=== PATIENT | female | born 1950 | race Caucasian/White ===

== ENCOUNTER 2017-09-26 10:30 | Inpatient (IN) ==
[2017-09-26] MEDS ORDERED: Aspirin 81 MG TAB.CHEW PO ONE (10:34)
[2017-09-26] MEDS ORDERED: *HR* Ticagrelor 90 MG TABLET PO ONE (10:44)
[2017-09-26] MEDS ORDERED: Heparin 25,000 UNIT/500 ML D5W 25,000 UNIT/500 ML BAG IVC SCH (10:45)
[2017-09-26] MEDS ORDERED: *HR* Heparin 5,000 UNIT/ML VIAL IVP PRN ×2 (10:45)
[2017-09-26] MEDS ORDERED: *HR* Heparin 5,000 UNIT/ML VIAL IVP ONE (10:45)
[2017-09-26] MEDS ORDERED: *HR* Heparin 5,000 UNIT/ML VIAL ONE (10:48)
[2017-09-26] MEDS ORDERED: *HR* Ticagrelor 90 MG TABLET ONE (10:48)
--- NOTE | 2017-09-26 10:49 | Emergency Department Note ---
Disposition Clinical Impression: STEMI (ST elevation myocardial infarction) Qualifiers: Involved coronary artery: unspecified coronary artery Qualified Code(s): I21.3 - ST elevation (STEMI) myocardial infarction of unspecified site Disposition: Admitted As Inpatient Condition: Good Chest Pain HPI - General Chief Complaint: ED Chest Pain Stated Complaint: chest pain/dizzy/diaphoretic Time Seen by Provider: 09/26/17 10:34 Source: patient Limitations: no limitations Vital Signs Reviewed: Yes Nursing Notes Reviewed: Yes - History of Present Illness HPI Narrative: Patient presents to emergency department after one hour of chest pressure. Patient states the concrete block has been sitting on her chest. Has associated nausea and diaphoresis as well as shortness of breath. No episodes of vomiting. No radiation of pain. Patient is a diabetic and has hypercholesterolemia. Patient does not take daily aspirin. The patient did not have aspirin prior to arrival. Patient has not received nitroglycerin. Bedside EKG shows that the patient has an inferior STEMI with elevations in 23 and aVF with flattening and inversion of her T waves in 1 and aVL. The patient does have a family history of coronary artery disease. Patient's pain has gone from a 10 to 8 with rest. Severity scale (1-10): 9 - Related Data Home Medications Medication Instructions Recorded Confirmed ALPRAZolam [Xanax 0.5 MG Tablet] 0.5 mg PO BID PRN 05/21/15 05/21/15 Cholecalciferol (Vitamin D3) 5,000 unit PO DAILY 05/21/15 05/21/15 [Vitamin D] Escitalopram [Lexapro] 10 mg PO DAILY 05/21/15 05/21/15 Esomeprazole Magnesium [Nexium] 20 mg PO HS 05/21/15 05/21/15 Fexofenadine HCl 180 mg PO DAILY 05/21/15 05/21/15 Fluticasone Propionate Nasal 1 spr NS BID 05/21/15 05/21/15 [Flonase] Gabapentin [Neurontin] 300 mg PO HS 05/21/15 05/21/15 HYDROcodone/Acet 5/325 mg [[place] 1 tab PO DAILY 05/21/15 05/21/15 5-325 mg] Ibuprofen [Motrin] 200 mg PO Q6HR 05/21/15 05/21/15 Lactobacillus Acidophilus 1 each PO BID 05/21/15 05/21/15 [Acidophilus] Montelukast [Singulair] 10 mg PO HS 05/21/15 05/21/15 Pravastatin Sodium [Pravachol] 20 mg PO HS 05/21/15 05/21/15 Previous Rx's Medication Instructions Recorded Oxycodone HCl/Acetaminophen 1 tab PO Q6H PRN #39 tab 05/21/15 [Percocet 10-325 mg Tablet] Allergies Allergy/AdvReac Type Severity Reaction Status Date / Time simvastatin AdvReac Mild LOW BLOOD Verified 09/26/17 10:46 PRESSURE Review of Systems: CONSTITUTIONAL: Diaphoresis No weight loss, fever, chills, weakness or fatigue. HEENT: Eyes: No visual changes. Ears, Nose, Throat: No hearing loss, difficulty talking or unable to swallow. SKIN: No rash or itching. CARDIOVASCULAR: Chest pain RESPIRATORY: Shortness of breath GASTROINTESTINAL: Nausea No anorexia, vomiting or diarrhea. No abdominal pain or blood. GENITOURINARY: No burning on urination or hematuria. NEUROLOGICAL: No headache, dizziness, syncope, paralysis, ataxia, numbness or tingling in the extremities. No change in bowel or bladder control. MUSCULOSKELETAL: No muscle pain, back pain, joint pain or stiffness. Chest Pain PMH - Past Medical History Medical history: Reports: diabetes Psychiatric history: Reports: anxiety, depression - Social History Smoking Status: Former smoker Alcohol use: Reports: occasionally Drug use: Reports: none Physical Exam General: Well appearing, nontoxic, no acute distress Head: Normocephalic Atraumatic Eyes: PERRL, EOMI ENT: Airway patent, no stridor Neck: supple, no meningismus Chest: Lungs clear to auscultation bilateral Cardiac: Regular rate and rhythm, no murmurs, rubs or gallops Abdomen: soft, nontender, nondistended; no guarding, rebound, or tenderness to percussion Musculoskeletal: Calves symmetric, nontender, no palpable cord Skin: No rash, normal skin tone Neuro: Alert and Oriented to person, place, and time; No focal deficit, CN 2-12 symmetric and intact - General Limitations: no limitations General appearance: alert, in no apparent distress Course - Consultations Consultation #1: STEMI alert activated. The EKG was walked to the Lending Consultant the case was discussed between Dr. Campa and Dr. Monet. Patient to receive heparin and [place] to and will be taken to Lending Consultant. Vital Signs Temperature 97.7 F 09/26/17 10:31 Pulse Rate 48 09/26/17 10:31 Respiratory Rate 20 09/26/17 10:31 Blood Pressure 140/85 09/26/17 10:31 O2 Sat by Pulse Oximetry 96 09/26/17 10:31 Temperature 97.7 F 09/26/17 10:39 Pulse Rate 47 09/26/17 11:04 Respiratory Rate 18 09/26/17 11:04 Blood Pressure 160/84 09/26/17 11:04 O2 Sat by Pulse Oximetry 98 09/26/17 11:04 Oxygen Delivery Oxygen Delivery Room Air Chest Pain - Medical Records Medical records reviewed: Yes I reviewed the patient's medical records. - Lab Data Lab results reviewed: Yes I reviewed the patient's lab results. Result diagrams: 09/26/17 10:48 09/26/17 10:48 Lab Results 09/26/17 09/26/17 09/26/17 Range/Units 10:48 10:48 10:48 WBC 10.8 (4.3-11.1) K/mcL RBC 4.50 (3.82-4.97) M/mcL Hgb 12.8 (11.5-15.4) g/dL Hct 40.5 (35.3-44.9) % MCV 90.0 (83.0-100.0) fL MCH 28.4 (28.0-33.3) pg MCHC 31.6 (31.6-35.5) g/dL RDW 16.4 H (11.5-14.5) % Plt Count 258 (140-400) K/mcL MPV 9.4 (9.4-12.4) fL Immature Gran % 0.4 (0-4) % Seg Neutrophils % 58.6 % Lymphocytes % 30.2 % Monocytes % 7.2 % Eosinophils % 2.9 % Basophils % 0.7 % Neutrophils # 6.3 (1.6-8.9) K/mcL Lymphocytes # 3.3 (0.6-4.6) K/mcL Monocytes # 0.8 (0.0-1.3) K/mcL Eosinophils # 0.3 (0.0-0.6) K/mcL Basophils # 0.1 (0.0-0.2) K/mcL PT 10.4 (9.4-12.1) Seconds INR 1.0 APTT 31.3 (26.0-36.0) Seconds Sodium 140 (136-145) mEq/L Potassium 3.6 (3.5-5.1) mEq/L Chloride 107 (98-107) mEq/L Carbon Dioxide 26 (23-29) mEq/L BUN 14 (8-23) mg/dL Creatinine 0.64 (0.60-1.20) mg/dL Est GFR ( Amer) > 60 (> 60) Est GFR (Non-Af Amer) > 60 (> 60) BUN/Creatinine Ratio 22 (6-26) Glucose 127 H (70-105) mg/dL Calculated Osmolality 292 (280-300) Calcium 9.8 (8.6-10.3) mg/dL Troponin I < 0.03 (< 0.04) ng/mL - Radiology Data Radiology results reviewed: Yes I reviewed the patient's radiology results. - EKG Data EKG attestation: Yes I reviewed and interpreted this EKG. EKG results narrative: The patient's EKG shows ST elevation in II, III, and F VF with reciprocal changes in 1 and aVL. Different from previous EKG. Attestation Statement - Attestation Attestation: I, Charbel Campa DO, examined this patient [id number] and my medical decision-making was reviewed with Manolo Redman DO, Resident Physician. I agree with the documented findings, disposition and treatment plan as described except to the extent set forth below. Please see my progress notes for details.
[2017-09-26 10:59] LABS: Basophils # 0.1 K/mcL (0.0-0.2); Basophils % 0.7 %; Eosinophils # 0.3 K/mcL (0.0-0.6); Eosinophils % 2.9 %; Hematocrit 40.5 % (35.3-44.9); Hemoglobin 12.8 g/dL (11.5-15.4); Immature Granulocytes % 0.4 % (0-4); Lymphocytes # 3.3 K/mcL (0.6-4.6); Lymphocytes % 30.2 %; Mean Corpuscular HGB Conc 31.6 g/dL (31.6-35.5); Mean Corpuscular Hemoglobin 28.4 pg (28.0-33.3); Mean Platelet Volume 9.4 fL (9.4-12.4); Monocytes # 0.8 K/mcL (0.0-1.3); Monocytes % 7.2 %; Neutrophils # 6.3 K/mcL (1.6-8.9); Platelet Count 258 K/mcL (140-400); Red Cell Distribution Width 16.4 % (11.5-14.5); Segmented Neutrophils % 58.6 %
--- NOTE | 2017-09-26 11:03 | Cardiology History & Physical ---
Date of Encounter: 09/26/17 Time of Encounter: 10:50 Assessment and Plan (1) STEMI (ST elevation myocardial infarction) Current Visit: Yes Status: Acute Patient reports acute onset of non-radiating midsternal chest burning that started at 9:45 AM today. ED: asa 325 mg, Brilinta 180mg load, IV heparin. ECG shows acute inferior STEMI. BP stable, HR 50's. Recommend emergent LHC with possible PCI; alternative, risks, and benefits discussed, she is agreeable to procedure. Obtain echo. Further recommendations to follow. Qualifiers: Involved coronary artery: unspecified coronary artery Qualified Code(s): I21.3 - ST elevation (STEMI) myocardial infarction of unspecified site (2) DMII (diabetes mellitus, type 2) Current Visit: Yes Status: Chronic The assessment and plan as outlined above was discussed with the patient and/or family members who expressed understanding and agreement. All questions were answered. Qualifiers: Diabetes mellitus nursing home insulin use: without nursing home use Diabetes mellitus complication status: without complication Qualified Code(s): E11.9 - Type 2 diabetes mellitus without complications (3) HLD (hyperlipidemia) Current Visit: Yes Status: Acute The assessment and plan as outlined above was discussed with the patient and/or family members who expressed understanding and agreement. All questions were answered. Qualifiers: Hyperlipidemia type: unspecified Qualified Code(s): E78.5 - Hyperlipidemia , unspecified History of Present Illness Chief complaint: Chest pain HPI: Ms. Lopez is a 66 year old female with PMHx significant for DMII, HLD, prior tobacco use who presented to the ED with acute onset of non-radiating chest discomfort that started at 9:45-10 AM just prior to bahai. Pain described as indigestion, felt like she had gas. No prior symptoms before today. ECG shows acute inferior STEMI. 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 Source: patient, old records reviewed Medical history: diabetes, hyperlipidemia Psychiatric history: anxiety, depression - Social History Smoking Status: Former smoker Smokeless Tobacco Status: No Alcohol use: occasionally Drug use: none - Family History Father Living Status: Hx Family Cardiac Disorders: Yes (CAD) Medications and Allergies ALPRAZolam [Xanax 0.5 MG Tablet] 0.5 mg PO BID PRN 05/21/15 [History] Cholecalciferol (Vitamin D3) [Vitamin D] 5,000 unit PO DAILY 05/21/15 [History] Escitalopram [Lexapro] 10 mg PO DAILY 05/21/15 [History] Esomeprazole Magnesium [Nexium] 20 mg PO HS 05/21/15 [History] Fexofenadine HCl 180 mg PO DAILY 05/21/15 [History] Fluticasone Propionate Nasal [Flonase] 1 spr NS BID 05/21/15 [History] Gabapentin [Neurontin] 300 mg PO HS 05/21/15 [History] HYDROcodone/Acet 5/325 mg [[place] 5-325 mg] 1 tab PO DAILY 05/21/15 [History] Ibuprofen [Motrin] 200 mg PO Q6HR 05/21/15 [History] Lactobacillus Acidophilus [Acidophilus] 1 each PO BID 05/21/15 [History] Montelukast [Singulair] 10 mg PO HS 05/21/15 [History] Oxycodone HCl/Acetaminophen [Percocet 10-325 mg Tablet] 1 tab PO Q6H PRN #39 tab 05/21/15 [Rx] Pravastatin Sodium [Pravachol] 20 mg PO HS 05/21/15 [History] 3 Allergy/AdvReac Type Severity Reaction Status Date / Time simvastatin AdvReac Mild LOW BLOOD Verified 09/26/17 10:46 PRESSURE All Systems Review: The remainder of the systems were reviewed and are negative - Cardiovascular Cardiovascular: as per HPI Physical Examination Vital Signs, Last 4 Hours Pulse Ox 09/26/17 10:57 99 General: Conversant, No Apparent Distress HEENT: Atraumatic, Normocephaly, Mucus Membranes Moist Neck: No JVD, Normal carotid pulses Cardiac: Reg Rate and Rhythm, Normal S1 and S2, No Murmur Lungs: Normal Breath Sounds, No Wheeze, Rales, Rhonchi Neuro: Alert and responsive, No focal deficits noted Abdomen: Soft, Non-Tender Skin: No rashes noted on visualized skin Musculoskeletal: No Chest Wall Tenderness Extremities: No Clubbing, No Cyanosis, No Edema, Normal Pulses Results 09/26/17 10:48 - Imaging and Cardiology Echo: pending Cardiac cath: pending, report reviewed - EKG Interpretation EKG results cardiology: personally reviewed
[2017-09-26 11:04] LABS: Prothrombin Time 10.4 Seconds (9.4-12.1)
[2017-09-26 11:07] LABS: Activated Partial Thrombo Time 31.3 Seconds (26.0-36.0)
[2017-09-26] MEDS ORDERED: *HR* Bivalirudin 250 MG VIAL IVC ONE (11:13)
[2017-09-26] MEDS ORDERED: 0.9 % Sodium Chloride 1,000 ML ONE (11:13)
[2017-09-26] MEDS ORDERED: *HR* Heparin 10,000 UNIT/10 ML VIAL ONE (11:13)
[2017-09-26] MEDS ORDERED: Heparin 1,000 UNITS/500 mL 500 ML ONE (11:13)
[2017-09-26] MEDS ORDERED: ISOVUE-370 200 ML INFUS..BTL IV ONE (11:13)
[2017-09-26] MEDS ORDERED: Nitroglycerin 1,000 MCG/10 ML VIAL IV ONE (11:14)
[2017-09-26 11:17] LABS: BUN/Creatinine Ratio 22 (6-26); Blood Urea Nitrogen 14 mg/dL (8-23); Calcium 9.8 mg/dL (8.6-10.3); Carbon Dioxide 26 mEq/L (23-29); Chloride 107 mEq/L (98-107); Glucose 127 mg/dL (70-105); Osmolality,Calculated 292 (280-300); Potassium 3.6 mEq/L (3.5-5.1); Sodium 140 mEq/L (136-145); eGFR For African Americans > 60 (> 60); eGFR For Non-African Americans > 60 (> 60)
[2017-09-26 11:18] LABS: Troponin I < 0.03 ng/mL (< 0.04)
[2017-09-26] MEDS ORDERED: *HR* Midazolam HCl 5 MG/5 ML VIAL IVP ONE (11:40)
[2017-09-26] MEDS ORDERED: *HR* FentaNYL (PF) 250 MCG/5 ML VIAL ONE (11:40)
--- NOTE | 2017-09-26 11:41 | Emergency Department Note ---
Disposition Clinical Impression: STEMI (ST elevation myocardial infarction) Qualifiers: Involved coronary artery: unspecified coronary artery Qualified Code(s): I21.3 - ST elevation (STEMI) myocardial infarction of unspecified site Disposition: Admitted As Inpatient Condition: Good Referrals: Minh Lauren DO [Primary Care Provider] - Time of Disposition: 11:41 General Adult HPI - General Chief complaint: ED Chest Pain Stated complaint: chest pain/dizzy/diaphoretic Time Seen by Provider: 09/26/17 10:34 Source: patient Limitations: no limitations - History of Present Illness Pain Scale: 9 - Related Data Home Medications Medication Instructions Recorded Confirmed ALPRAZolam [Xanax 0.5 MG Tablet] 0.5 mg PO BID PRN 05/21/15 05/21/15 Cholecalciferol (Vitamin D3) 5,000 unit PO DAILY 05/21/15 05/21/15 [Vitamin D] Escitalopram [Lexapro] 10 mg PO DAILY 05/21/15 05/21/15 Esomeprazole Magnesium [Nexium] 20 mg PO HS 05/21/15 05/21/15 Fexofenadine HCl 180 mg PO DAILY 05/21/15 05/21/15 Fluticasone Propionate Nasal 1 spr NS BID 05/21/15 05/21/15 [Flonase] Gabapentin [Neurontin] 300 mg PO HS 05/21/15 05/21/15 HYDROcodone/Acet 5/325 mg [[place] 1 tab PO DAILY 05/21/15 05/21/15 5-325 mg] Ibuprofen [Motrin] 200 mg PO Q6HR 05/21/15 05/21/15 Lactobacillus Acidophilus 1 each PO BID 05/21/15 05/21/15 [Acidophilus] Montelukast [Singulair] 10 mg PO HS 05/21/15 05/21/15 Pravastatin Sodium [Pravachol] 20 mg PO HS 05/21/15 05/21/15 Previous Rx's Medication Instructions Recorded Oxycodone HCl/Acetaminophen 1 tab PO Q6H PRN #39 tab 05/21/15 [Percocet 10-325 mg Tablet] Allergies Allergy/AdvReac Type Severity Reaction Status Date / Time simvastatin AdvReac Mild LOW BLOOD Verified 09/26/17 10:46 PRESSURE Past Medical History - Past Medical History Medical history: Reports: diabetes Psychiatric history: Reports: anxiety, depression - Social History Smoking Status: Former smoker Smokeless Tobacco Status: No Alcohol use: Reports: occasionally Drug use: Reports: none Physical Exam - General Limitations: no limitations General appearance: alert, in no apparent distress Course Vital Signs Temperature 97.7 F 09/26/17 10:31 Pulse Rate 48 09/26/17 10:31 Respiratory Rate 20 09/26/17 10:31 Blood Pressure 140/85 09/26/17 10:31 O2 Sat by Pulse Oximetry 96 09/26/17 10:31 Temperature 97.7 F 09/26/17 10:39 Pulse Rate 47 09/26/17 11:04 Respiratory Rate 18 09/26/17 11:04 Blood Pressure 160/84 09/26/17 11:04 O2 Sat by Pulse Oximetry 98 09/26/17 11:04 Oxygen Delivery Oxygen Delivery Room Air Medical Decision Making - Lab Data Result diagrams: 09/26/17 10:48 09/26/17 10:48 Lab Results 09/26/17 09/26/17 09/26/17 Range/Units 10:48 10:48 10:48 WBC 10.8 (4.3-11.1) K/mcL RBC 4.50 (3.82-4.97) M/mcL Hgb 12.8 (11.5-15.4) g/dL Hct 40.5 (35.3-44.9) % MCV 90.0 (83.0-100.0) fL MCH 28.4 (28.0-33.3) pg MCHC 31.6 (31.6-35.5) g/dL RDW 16.4 H (11.5-14.5) % Plt Count 258 (140-400) K/mcL MPV 9.4 (9.4-12.4) fL Immature Gran % 0.4 (0-4) % Seg Neutrophils % 58.6 % Lymphocytes % 30.2 % Monocytes % 7.2 % Eosinophils % 2.9 % Basophils % 0.7 % Neutrophils # 6.3 (1.6-8.9) K/mcL Lymphocytes # 3.3 (0.6-4.6) K/mcL Monocytes # 0.8 (0.0-1.3) K/mcL Eosinophils # 0.3 (0.0-0.6) K/mcL Basophils # 0.1 (0.0-0.2) K/mcL PT 10.4 (9.4-12.1) Seconds INR 1.0 APTT 31.3 (26.0-36.0) Seconds Sodium 140 (136-145) mEq/L Potassium 3.6 (3.5-5.1) mEq/L Chloride 107 (98-107) mEq/L Carbon Dioxide 26 (23-29) mEq/L BUN 14 (8-23) mg/dL Creatinine 0.64 (0.60-1.20) mg/dL Est GFR ( Amer) > 60 (> 60) Est GFR (Non-Af Amer) > 60 (> 60) BUN/Creatinine Ratio 22 (6-26) Glucose 127 H (70-105) mg/dL Calculated Osmolality 292 (280-300) Calcium 9.8 (8.6-10.3) mg/dL Troponin I < 0.03 (< 0.04) ng/mL Attestation Statement - Attestation Attestation: I, Charbel Campa DO, examined this patient [id number] and my medical decision-making was reviewed with Manolo Redman DO, Resident Physician. I agree with the documented findings, disposition and treatment plan as described except to the extent set forth below. Please see my progress notes for details. 66-year-old female presents to the emergency room for evaluation of chest pain and heaviness. Initial EKG did show acute ST segment elevation in the inferior leads with reciprocal changes in 1 and aVL. Immediately a STEMI alert was called. At 1044 approximately 13 minutes after the patient arrived here to the emergency room. Patient will be provided with anticoagulation medication including heparin as well as Brlilinta. Patient will screening chest x-ray and labs including CBC chemistry troponin as well as coagulation studies. Medical intervention will be completed here. I discussed and reviewed EKG with the education counselor Dr. Yanci Monet. She is currently in a case at this time the patient will be able to meet metrics within the hour being intervened upon for what appears to be an inferior myocardial infarction. No other recommendations this time. We will continue to monitor the patient closely until it is transferred to the catheterization lab for evaluation. 1135 Patient left our department stable with a repeat EKG that shows moderate resolution of the ST segment elevation. Patient's symptoms are down from a 10 to a 3 at this point. Catheterization team is at the bedside noted the patient to the Email Specialist this time for definitive management. No other acute issues noted. Patient stable at the time of transfer to the Email Specialist. No critical care provider the patient's treatment course at this time
[2017-09-26] MEDS ORDERED: ALPRAZolam 0.5 MG TABLET PO PRN (12:09)
[2017-09-26] MEDS ORDERED: *HR* HYDROcodone/Acet 5/325 mg TABLET PO PRN (12:09)
[2017-09-26] MEDS ORDERED: Nitroglycerin 0.4 MG TAB.SUBL SL PRN (12:12)
--- NOTE | 2017-09-26 12:49 | Invasive Diagnostic Lab Proc ---
Name: Shazia Lopez Date of Study: 09/26/2017 Date: 1950 Ht: 64.2in Medical Record#: [id number] Age: 66 Wt: 196.87lb Gender: Female BSA: 1.95 Order #: [id number] BMI: 33.61 Physicians Procedure Physician: Yanci Monet MD, [facility] Referring MD: Referring MD: Staff Name Position Time In Chivo Monge RN Monitor 11:37 AM Eran Xiao RN Supervisor Scouring Pads 11:37 AM Malu Perez RN Supervisor Scouring Pads 11:37 AM Carol Forbes RT (R) Scrub 11:37 AM Indications Indication STEMI Procedures Performed Procedure PRQ CARD REVASC SD 1 VSL L HRT ARTERY/VENTRICLE ANGIO Pre-Procedure Checklist Informed consent is complete signed and on chart. H&P is on chart. ID band is on and ID verified with patient. Pt not NPO for procedure and MD aware. The procedure was described for the patient and questions were answered. ECG is on chart. Rhythm: Sinus Bradycardia Plan of Care Patient will tolerate the procedure without complications. Adequate level of comfort will be maintained. Hemodynamics will remain stable Patient will recover from procedure without complications. Respiratory function will be maintained. Cardiac rhythm will remain stable. Patient temperature will be maintained. Patient and/or family have verbalized understanding of the procedure. Patient Education Intravenous Access Time IV Size Location DC'd Fluid/Drip Rate Units RN 18g 1 1/4" Patent On Arrival Rt Antecubital Eran Xiao RN 18g 1 1/4" Patent On Arrival Lt Antecubital 0.9NaCl Eran Xiao RN Allergies NKDA simvastatin Vital Signs Time BP (mmHg) HR (bpm) O2 Sat. RR (bpm) LOC 11:38 AM / % 4 = Oriented but drowsy 11:38 AM / % 5 = Fully awake and oriented or at pre-proc level 11:38 AM / % 4 = Oriented but drowsy 11:42 AM 146 / 74 52 100 % 14 11:46 AM 110 / 67 52 100 % 11 11:51 AM 121 / 73 52 100 % 12 11:56 AM 110 / 68 59 100 % 12 12:01 PM 123 / 71 54 99 % 12 11:53 AM / % 4 = Oriented but drowsy Procedural Medications Time Medication Dose Units Method Given By 11:42 AM Oxygen 2 L/min nasal cannula Eran Xiao RN 11:42 AM Versed 2 mg Intravenous Eran Xiao RN 11:42 AM Fentanyl 50 mcg Intravenous Eran Xiao RN 11:44 AM Lidocaine 2% 19 ml Subcutaneous Yanci Monet MD, [facility] 11:50 AM Angiomax 0.75mg/kg bolus: 13.5 ml Intravenous Eran Xiao RN 11:50 AM Angiomax 1.75mg/kg/hr: 31.5 ml/hr Intravenous Eran Xiao RN 11:54 AM Nitroglycerin 200 mcg Intracoronary Yanci Monet MD, [facility] ASA Classification: Emergent Procedure: ASA score is assumed Lobo Score Preprocedure Postprocedure Activity 2- Moves 4 extremities sustained head lift Activity 2- Moves 4 extremities sustained head lift Circulation 2- SBP +/= 20 points of pre-anesthetic level Circulation 2- SBP +/= 20 points of pre-anesthetic level Consciousness 2- Awake and alert oriented x 3 Consciousness 2- Awake and alert oriented x 3 O2 Saturation 2- Able to maintain O2 satruation of 92% on room air O2 Saturation 2- Able to maintain O2 satruation of 92% on room air Respiratory 2- Able to deep breathe and cough well Respiratory 2- Able to deep breathe and cough well Total Score 10 Total Score 10 Contrast Agent: Isovue Diagnostic Contrast: 77 ml Total Contrast: 77 ml Fluoro Dose: 327 mGy Procedure Log Time Note Enter By 11:27 AM CathStat 11:37 AM Pt arrived to crime lab technician 1 at 11:37 csmith 11:37 AM Chivo Monge RN Position: Monitor Time in: 11:37 csmith 11:37 AM Eran Xiao RN Position: Supervisor Scouring Pads Time in: 11:37 csmith 11:37 AM Malu Perez RN Position: Supervisor Scouring Pads Time in: 11:37 csmith 11:37 AM Carol Forbes RT (R) Position: Scrub Time in: 11:37 csmith 11:37 AM Patient charges- Angio tray pack, Navilyst 3mm J, Pulse Oximetry and ACIST tubing and transducer csmith 11:37 AM Physician arrived 11:37 csmith 11:37 AM Benjy and gregarth completed csmith 11:38 AM Sign in performed according to hospital policy. csmith 11:38 AM Procedure start 11:38 csmith 11:38 AM Hair removed from procedure site in procedure lab using clippers. Bilateral groin prepped with Chloraprep by Carol Forbes (R), then patient was draped. Skin intact. csmith 11:38 AM Time: Patient comfortable and pain free: Yes csmith :38 AM Time: LOC: 5 = Fully awake and oriented or at pre-proc level csmith 11:38 AM Clinical Presentation: STEMI or equivalent csmith 11:40 AM Vitals capture started with the following parameters, Patient=Adult, Interval=5 min, Initial Umjqyepm=612 mmHg, Deflation Rate=3 mmHg, Cuff placed on Right Arm 11:42 AM Time out performed according to hospital policy csmith : AM Time: :42 Oxygen on at 2 L/min per nasal cannula by Eran Xiao RN csmith : AM Time: : Versed 2 mg Intravenous Given by Eran Xiao RN csmith 11:42 AM HR=52 bpm, ALID=737/74 mmhg, RoD8=489.0 %, Resp=14 B/min, Comment=sb : AM Time: :42 Fentanyl 50 mcg Intravenous Given by Eran Xiao RN csmith :44 AM Time: :44 19 ml Lidocaine 2% to right groin Subcutaneous Given by Yanci Monet MD, [facility] csmith 11:44 AM Access obtained by percutaneous puncture. 6Fr 10cm Terumo [place] sheath placed in right Femoral artery. [id number] csmith 11:44 AM 5Fr FL 4 catheter inserted over the wire [facility] csmith 11:46 AM LCA angiography performed in multiple views. csmith 11:46 AM HR=52 bpm, SWMU=917/67 mmhg, MuO9=097.0 %, Resp=11 B/min, Comment=sb 11:46 AM Catheter removed csmith 11:47 AM 6Fr JR 4 Cordis guide catheter was used to cannulate the PCI vessel successfully. reused? No csmith 11:47 AM Inflation device was opened. csmith 11:47 AM Recorded Pressure: Ao, HR=50, Condition=Condition 1 (Aorta) Ao 139/70/95 11:48 AM RCA angiography performed in multiple views. csmith 11:49 AM Lesion found in Mid RCA. Pre Stenosis: 99 Pre DOUG Flow: 2: Partial Flow/Perfusion (> 1 but < 3) csmith 11:49 AM Right Coronary, Right Posterior Descending Arteries with Right Posterolateral and Acute Marginal branches with 99 % stenosis. If graft is supplying this area, 0 % stenosis csmith 11:49 AM PCI Indication: Immediate PCI for STEMI csmith 11:49 AM PCI Status Emergency csmith 11:50 AM .014 Prowater 180cm guide wire across target lesion- successful. reused? No csmith 11:50 AM 2.5 mm x 12 mm Emerge Monorail balloon across target lesion- successful. reused? No csmith 11:50 AM Time: 11:50 Angiomax 0.75mg/kg bolus: 13.5 ml Intravenous Given by Eran Xiao RN Cárdenas pump csmith 11:50 AM Balloon inflated @ 8 lee ann for 20 seconds csmith 11:51 AM Time: 11:50 Angiomax 1.75mg/kg/hr: 31.5 ml/hr Intravenous Given by Eran Xiao RN Cárdenas pump csmith 11:51 AM HR=52 bpm, ZLTV=876/73 mmhg, DmQ6=633.0 %, Resp=12 B/min, Comment=sb 11:51 AM [facility] 11[facility]52 AM Recorded Pressure: Ao, HR=57, Condition=Condition 1 (Aorta) Ao 129/71/95 11:52 AM 3.0mm x 16mm Synergy drug-eluting stent across target lesion- successful Lot #[id number] csmith 11:53 AM Stent deployed @ 12 lee ann for 30 seconds [facility] 11:53 AM Time: 11:38 Patient comfortable and pain free: Yes csmith 11:53 AM Time: 11:38LOC: 4 = Oriented but drowsy csmith 11:53 AM Stent delivery system removed intact. csmith 11:54 AM Time: 11:54 Nitroglycerin 200 mcg Intracoronary Given by Yanci Monet MD, [facility] 11:54 AM Recorded Pressure: Ao, HR=53, Condition=Condition 1 (Aorta) Ao 120/64/83 11:55 AM Guide catheter removed intact. csmith 11:55 AM Coronary Dominance: right [facility] 11:56 AM 5Fr Pigtail catheter inserted over the wire [facility] 11:56 AM Catheter selectively placed in left ventricle [facility] 11:56 AM Pressure channel 1 zeroed. 11:56 AM Recorded Pressure: LV, HR=61, Condition=Condition 1 (Left Ventricle) LV 103/7/11 11:56 AM HR=59 bpm, HGLE=195/68 mmhg, FaV1=134.0 %, Resp=12 B/min 11:56 AM Bolus angiogram of left Ventricle complete: 8 ml/sec for a total of 24 mls csmith 11:56 AM Recorded Pressure: LV, Ao, HR=61, Condition=Condition 1 (Left Ventricle) LV 101/24/29, (Aorta) Ao 100/66/82 11:57 AM Catheter removed csmith 11:58 AM Bolus angiogram of right Femoral complete: 4 ml/sec for a total of 7 mls csmith 11:58 AM Procedure completed at 11:58 csmith 11:59 AM Did you address DOUG flow and Dominance? Yes csmith 11:59 AM Sign out completed: Radiation Dose 327 mGy Fluoro Time: 3.2 Isovue 370 - 200ml contrast 77 ml given by Yanci Monet MD, [facility]. Complications: NoneCardiac Rehab Consult needed: YesConfirmed administered medications: Yes csmith 11:59 AM Isovue 370 - 200ml,1 Bottle(s) used. csmith 11:59 AM Sheath left in place to be pulled on floor/holding areaV+Pad csmith 11:59 AM Estimated Blood Loss: minimal csmith 11:59 AM Post ECG Sinus Bradycardia csmith 11:59 AM Post Blood Pressure 110/68 csmith 11:59 AM 11:59 Post Pulses Bilateral DP & PT 2+ csmith 12:00 PM Information taught Cardiac Cath and PCI csmith 12:01 PM Education needs Procedure, Plan of Care, and Responsibilities of Patient in Care csmith 12:01 PM Learning barriers :None csmith 12:01 PM Education Methods Verbal csmith 12:01 PM Education evaluation Able to repeat information csmith 12:01 PM Site status No bleeding/hematoma - Rt Groin as reported by Carol Forbes RT (R) at 12:01 csmith 12:01 PM Opsite applied csmith 12:01 PM HR=54 bpm, IZRD=914/71 mmhg, SpO2=99.0 %, Resp=12 B/min, Comment=sb 12:05 PM Plavix, Effient or Brilinta given Yes csmith 12:05 PM Family placed in consult room. csmith 12:05 PM Complications: None csmith 12:05 PM Fluoro Time: 3.2 csmith 12:06 PM Isovue 370 - 200ml contrast 77 ml given by Yanci monet. csmith 12:06 PM Radiation Dose 327 mGy csmith 12:08 PM Time: 11:53 Patient comfortable and pain free: Yes csmith 12:09 PM Time: 11:53LOC: 4 = Oriented but drowsy csmith 12:10 PM Patient out of room: 12:10 csmith 12:11 PM Lesion found in Proximal LAD. Pre Stenosis: 60 Pre DOUG Flow: csmith 12:11 PM Lesion found in Proximal RCA. Pre Stenosis: 25 Pre DOUG Flow: csmith 12:11 PM Lesion found in Mid LAD. Pre Stenosis: 50 Pre DOUG Flow: csmith 12:11 PM Lesion found in Proximal Circumflex. Pre Stenosis: 30 Pre DOUG Flow: csmith 12:12 PM Proximal Left Anterior Descending Coronary Artery with 60% stenosis. If graft is supplying this territory, 0 % stenosis. csmith 12:12 PM Mid/Distal Left Anterior Descending Coronary Artery and diagonal branches with 50% stenosis. If graft is supplying this area, 0 % stenosis csmith 12:12 PM Circumflex, Obtuse Marginal, Left Posterior Descending, and Left Posterolateral Coronary Arteries with 30 % stenosis. If graft is supplying this area, 0 % stenosis csmith 12:35 PM Report given to Yulissa RN Pt taken to ICU Room #1. 12:10 csmith Complications Complication None None Hemodynamics Pressures Site Systolic/A Wave Diastolic/V Wave Mean AO 139 70 95 AO 129 71 95 AO 120 64 83 LV 103 7 11 LV 101 24 29 AO 100 66 82 Post Procedure Information Blood Pressure: 110/68 mmHg Rhythm: Sinus Bradycardia Post procedural instructions were given Site Checks Time Location Status Staff Sheath In? Note 12:01 PM Rt Groin No bleeding/hematoma Carol Forbes RT (R) Pulses Time Site Pre-Procedure Post-Procedure Note 11:59:00 AM Bilateral DP & PT 2+ Updated by Eran Xiao RN on 09/26/2017 12:40:04 PM electronically signed on 09/26/2017 12:41:00 PM with status of Final
[2017-09-26] MEDS: Lactobacillus 1 EACH CAP.SPRINK PO SCH (21:25)
[2017-09-27 04:18] LABS: Basophils % 0.4 %; Eosinophils # 0.3 K/mcL (0.0-0.6); Eosinophils % 2.5 %; Hematocrit 36.3 % (35.3-44.9); Hemoglobin 12.1 g/dL (11.5-15.4); Immature Granulocytes % 0.6 % (0-4); Lymphocytes # 2.6 K/mcL (0.6-4.6); Lymphocytes % 25.5 %; Mean Corpuscular HGB Conc 33.3 g/dL (31.6-35.5); Mean Corpuscular Hemoglobin 29.9 pg (28.0-33.3); Mean Corpuscular Volume 89.6 fL (83.0-100.0); Mean Platelet Volume 9.6 fL (9.4-12.4); Monocytes # 0.8 K/mcL (0.0-1.3); Monocytes % 7.9 %; Neutrophils # 6.3 K/mcL (1.6-8.9); Platelet Count 225 K/mcL (140-400); Red Blood Count 4.05 M/mcL (3.82-4.97); Red Cell Distribution Width 16.5 % (11.5-14.5); Segmented Neutrophils % 63.1 %
[2017-09-27 04:40] LABS: BUN/Creatinine Ratio 19 (6-26); Blood Urea Nitrogen 10 mg/dL (8-23); Calcium 9.1 mg/dL (8.6-10.3); Carbon Dioxide 23 mEq/L (23-29); Chloride 109 mEq/L (98-107); Chol/HDL Ratio 3.3 (0-4.9); Cholesterol 154 mg/dL (< 200); Glucose 115 mg/dL (70-105); HDL Cholesterol 47 mg/dL (40-59); LDL Cholesterol,Calculated 84 mg/dL (0-99); Osmolality,Calculated 292 (280-300); Potassium 3.7 mEq/L (3.5-5.1); Sodium 141 mEq/L (136-145); Triglycerides 114 mg/dL (< 150); eGFR For African Americans > 60 (> 60); eGFR For Non-African Americans > 60 (> 60)
[2017-09-27] MEDS ORDERED: Cholecalciferol (D-3) 1,000 UNIT TABLET PO SCH (09:00)
[2017-09-27] MEDS ORDERED: Aspirin 81 MG TAB.CHEW PO SCH (09:00)
[2017-09-27] MEDS ORDERED: Loratadine 10 MG TABLET PO SCH (09:00)
--- NOTE | 2017-09-27 09:17 | Cardiology Progress Note ---
Date of Encounter: 09/27/17 Time of Encounter: 09:00 Assessment and Plan (1) STEMI (ST elevation myocardial infarction) Current Visit: Yes Status: Acute Patient reports acute onset of non-radiating midsternal chest burning that started at 9:45 AM today. Acute inferior STEMI per ECG. [facility] 09/26/17: AMI d/t thrombotic occlusion of RCA; EF 60%; s/p successful PTCA/ SHELBIE to mRCA; otherwise mild-moderate non-obstructive CAD. TTE: pending. Peak troponin 7.5 thus far, will check in AM to ensure downtrend. No chest pain/discomfort. Cardiac rehab consult. Uninterrupted DAPT (asa + plavix) for a minimum of 1 year. Continue statin. BB on hold d/t bradycardia. HR 40-50's during [facility] yesterday, avg HR=54 overnight. 60-70's upon exam today. Plan to step down to 2N today. Qualifiers: Involved coronary artery: right coronary artery Qualified Code(s): I21.11 - ST elevation (STEMI) myocardial infarction involving right coronary artery (2) DMII (diabetes mellitus, type 2) Current Visit: Yes Status: Chronic Resume home medications. Qualifiers: Diabetes mellitus medical terminologist insulin use: without longterm use Diabetes mellitus complication status: without complication Qualified Code(s): E11.9 - Type 2 diabetes mellitus without complications (3) HLD (hyperlipidemia) Current Visit: Yes Status: Acute The assessment and plan as outlined above was discussed with the patient and/or family members who expressed understanding and agreement. All questions were answered. Qualifiers: Hyperlipidemia type: unspecified Qualified Code(s): E78.5 - Hyperlipidemia , unspecified Discussion w patient/family: The assessment and plan as outlined above was discussed with the patient and/or family members who expressed understanding and agreement. All questions were answered. Thank you for involving us in the care of your patient. Please call with any questions. The patient was discussed and reviewed with Dr. Wilkins; changes to be made accordingly. Subjective Principal diagnosis: STEMI Interval history: Seen and examined. Objective Vital Signs, Last 4 Hours Temp Pulse Resp BP Pulse Ox 09/27/17 09:00 61 18 98 09/27/17 08:00 58 18 09/27/17 07:53 66 09/27/17 07:14 97.4 F L 09/27/17 07:00 66 18 114/76 09/27/17 06:00 66 12 119/72 94 Results 09/27/17 03:49 09/27/17 03:49 Lab Results 09/26/17 09/27/17 09/27/17 12:39 03:49 03:49 WBC 10.0 Hgb 12.1 Hct 36.3 Plt Count 225 Sodium 141 Potassium 3.7 Chloride 109 H Carbon Dioxide 23 BUN 10 Creatinine 0.54 L Glucose 115 H Calcium 9.1 Troponin I 0.90 H* 7.50 H* Active Medications Acetaminophen (Tylenol) 500 mg PO Q6HR PRN PRN Reason: Mild Pain Stop: 03/28/18 12:13 Hydrocodone Bitart/Acetaminophen ([place] 5-325 Mg) 1 tab PO DAILY PRN PRN Reason: Pain Stop: 03/28/18 12:10 Alprazolam (Xanax) 0.5 mg PO BID PRN; Protocol PRN Reason: Anxiety Stop: 03/28/18 12:10 Aspirin (Aspirin) 81 mg PO DAILY JANNETH Stop: 03/29/18 09:01 Atorvastatin Calcium (Lipitor) 80 mg PO HS JANNETH Stop: 03/28/18 21:01 Last Admin: 09/26/17 21:26 Dose: Not Given Clopidogrel Bisulfate (Plavix) 75 mg PO DAILY JANNETH Stop: 03/29/18 09:01 Escitalopram Oxalate (Lexapro) 10 mg PO DAILY JANNETH Stop: 03/29/18 09:01 Last Admin: 09/27/17 09:15 Dose: Not Given Lactobacillus Acidophilus/Rhamnosus (Culturelle) 1 each PO BID JANNETH Stop: 03/28/18 21:01 Last Admin: 09/26/17 21:25 Dose: 1 each Lisinopril (Zestril) 2.5 mg PO DAILY JANNETH Stop: 03/29/18 09:01 Loratadine (Claritin) 10 mg PO DAILY JANNETH Stop: 03/29/18 09:01 Last Admin: 09/27/17 09:15 Dose: Not Given Metoprolol Tartrate (Lopressor) 25 mg PO BID JANNETH Stop: 03/28/18 21:01 Last Admin: 09/27/17 09:09 Dose: Not Given Montelukast Sodium (Singulair) 10 mg PO HS JANNETH Stop: 03/28/18 21:01 Last Admin: 09/26/17 21:25 Dose: 10 mg Nitroglycerin (Nitroglycerin) 0.4 mg SL Q5MIN PRN PRN Reason: Chest Pain Stop: 03/28/18 12:13 Omeprazole (Prilosec) 20 mg PO HS [facility] Stop: 03/28/18 21:01 Last Admin: 09/26/17 21:25 Dose: 20 mg Vitamin D (Vitamin D) 1,000 unit PO DAILY [facility] Stop: 03/29/18 09:01 - Imaging and Cardiology Echo: pending Cardiac cath: report reviewed Other Results: 12 hour tele: avg HR=52 SB. - EKG Interpretation EKG results cardiology: personally reviewed - VTE Reasons for not Prescribing Prophylaxis: Not indicated-Anticoagulated or INR therapeutic Consult Discharge Plan - Plan Referrals: Minh Lauren DO [Primary Care Provider] -
[2017-09-27] MEDS: Lactobacillus 1 EACH CAP.SPRINK PO SCH ×2 (09:28→22:26)
[2017-09-27] MEDS ORDERED: ALPRAZolam 0.5 MG TABLET PO PRN (09:48)
[2017-09-27] MEDS ORDERED: Nitroglycerin 0.4 MG TAB.SUBL SL PRN (09:48)
[2017-09-27] MEDS ORDERED: *HR* HYDROcodone/Acet 5/325 mg TABLET PO PRN (09:48)
--- NOTE | 2017-09-27 14:08 | Electrocardiograph Report ---
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
--- NOTE | 2017-09-27 14:40 | Electrocardiograph Report ---
[address] [place], [place] [address] Test Date: 2017-09-26 Pat Name: Shazia Lopez Department: 103 Room: 01 Gender: F Estimator Binding: : 1950 Requested By: Charbel Campa Order Number: [id number] Reading MD: Sandy Winston Measurements Intervals [place] Rate: 42 P: 26 WA: 202 QRS: -4 QRSD: 111 T: 74 QT: 442 QTc: 385 Interpretive Statements SINUS BRADYCARDIA INTRAVENTRICULAR CONDUCTION DELAY [110+ ms QRS DURATION] INFERIOR [place], POSSIBLY RECENT Electronically Signed On 09-27-2017 14:39:14 EDT by Sandy Winston
--- NOTE | 2017-09-27 14:42 | Electrocardiograph Report ---
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
[2017-09-28 06:37] LABS: BUN/Creatinine Ratio 31 (6-26); Blood Urea Nitrogen 18 mg/dL (8-23); Carbon Dioxide 22 mEq/L (23-29); Chloride 108 mEq/L (98-107); Glucose 115 mg/dL (70-105); Osmolality,Calculated 293 (280-300); Potassium 3.9 mEq/L (3.5-5.1); Sodium 140 mEq/L (136-145); eGFR For African Americans > 60 (> 60); eGFR For Non-African Americans > 60 (> 60)
[2017-09-28 06:43] LABS: Troponin I 3.06 ng/mL (< 0.04)
[2017-09-28] MEDS ORDERED: Cholecalciferol (D-3) 1,000 UNIT TABLET PO SCH (09:00)
[2017-09-28] MEDS ORDERED: Aspirin 81 MG TAB.CHEW PO SCH (09:00)
[2017-09-28] MEDS ORDERED: Loratadine 10 MG TABLET PO SCH (09:00)
--- NOTE | 2017-09-28 10:38 | Discharge Summary ---
Orders not resulted at time of discharge: Pending orders 09/27/17 07:00 ECG 12 lead ECG [ECG] Routine Date of Encounter: 09/28/17 Time of Encounter: 10:20 - Discharge Diagnosis (1) STEMI (ST elevation myocardial infarction) Priority: Primary Status: Acute Qualifiers: Involved coronary artery: right coronary artery Qualified Code(s): I21.11 - ST elevation (STEMI) myocardial infarction involving right coronary artery (2) DMII (diabetes mellitus, type 2) Priority: Secondary Status: Chronic Qualifiers: Diabetes mellitus assisted insulin use: without assisted use Diabetes mellitus complication status: without complication Qualified Code(s): E11.9 - Type 2 diabetes mellitus without complications (3) HLD (hyperlipidemia) Priority: Secondary Status: Acute Qualifiers: Hyperlipidemia type: unspecified Qualified Code(s): E78.5 - Hyperlipidemia , unspecified - Hospital Course Hospital course: Ms. Loepz is a 66 year old female who presented on 09/26 as acute inferior STEMI ; she was emergently taken to the laboratory machinist s/p successful PTCA/SHELBIE to RCA. She was transferred to the ICU for observation. Labs, vital signs, and telemetry have been stable. She has been chest pain fee since admission. TTE demonstrated preserved LVEF with normal wall motion. No complaints this morning upon exam. She does have mild amount of ecchymosis at cath site (soft, no hematoma present). Ms. Lopez is being prepped for discharge to home in stable condition. Instructed patient on importance of uninterrupted DAPT (asa + plavix) for a minimum of 1 year; she was also started on betablocker and statin. Education regarding new medications discussed at length. All questions and concerns were addressed and agrees with plan. Follow-up with [facility] in 5-7 days. - Time Spent with Patient Total time spent providing and/or coordinating discharge services: 30 minutes Less than 30 minutes Specific discharge activities: per post PCI discharge instructions, please provide written copy. No heavy lifting >5 lbs for 1 week. Keep cath site clean and dry until healed. - Discharge Medications Prescriptions: Nitroglycerin 0.4 mg SL Q5MIN PRN #30 tab.subl PRN Reason: Chest Pain Aspirin 81 mg PO DAILY #30 tab.chew Atorvastatin [Lipitor] 80 mg PO HS #30 tablet Clopidogrel [Plavix] 75 mg PO DAILY #75 tablet Metoprolol [Lopressor] 12.5 mg PO BID #60 tablet Home Medications: ALPRAZolam [Xanax 0.5 MG Tablet] 0.5 mg PO BID PRN 05/21/15 [History] Cholecalciferol (Vitamin D3) [Vitamin D3] 5,000 unit PO DAILY 05/21/15 [History] Escitalopram [Lexapro] 10 mg PO DAILY 05/21/15 [History] Esomeprazole Magnesium [Nexium] 20 mg PO HS 05/21/15 [History] Fexofenadine HCl 180 mg PO DAILY 05/21/15 [History] HYDROcodone/Acet 5/325 mg [[place] 5-325 mg] 1 tab PO DAILY PRN 05/21/15 [History] Lactobacillus Acidophilus [Acidophilus] 1 each PO BID 05/21/15 [History] Montelukast [Singulair] 10 mg PO HS 05/21/15 [History] Aspirin 81 mg PO DAILY #30 tab.chew 09/28/17 [Rx] Atorvastatin [Lipitor] 80 mg PO HS #30 tablet 09/28/17 [Rx] Clopidogrel [Plavix] 75 mg PO DAILY #75 tablet 09/28/17 [Rx] Ibuprofen [Motrin] 200 mg PO QAM PRN #0 09/28/17 [Rx] Metoprolol [Lopressor] 12.5 mg PO BID #60 tablet 09/28/17 [Rx] Nitroglycerin 0.4 mg SL Q5MIN PRN #30 tab.subl 09/28/17 [Rx] Allergies/Adverse Reactions: 3 Allergy/AdvReac Type Severity Reaction Status Date / Time simvastatin AdvReac Mild LOW BLOOD Verified 09/26/17 10:46 PRESSURE Date of admission: 09/26/17 10:56 Primary care physician: Minh Lauren DO Consults: 09/26/17 12:12 Consult to Cardiac Rehabilitation-Phase1 [CONS] Routine Comment: Reason for Consult: AMI Call Completed: Yes Consult to Nurse Navigator [CONS] Routine Comment: Discharging clinician: Ximena Giles Anticipated date of discharge: 09/28/17 Physical Examination Vital Signs, Last 4 Hours Temp Pulse Resp BP Pulse Ox 09/28/17 07:30 97.9 F 61 16 102/57 97 General: Conversant, No Apparent Distress HEENT: Atraumatic, Normocephaly, Mucus Membranes Moist Neck: No JVD, Normal carotid pulses Cardiac: Reg Rate and Rhythm, Normal S1 and S2, No Murmur Lungs: Normal Breath Sounds, No Wheeze, Rales, Rhonchi Neuro: Alert and responsive, No focal deficits noted Abdomen: Soft, Non-Tender Skin: No rashes noted on visualized skin Musculoskeletal: No Chest Wall Tenderness Extremities: No Clubbing, No Cyanosis, No Edema, Normal Pulses Other: right groin: moderate amount of soft ecchymosis noted at right groin/pubic area. +2 DP/PT pulses - Patient Status Disposition: Home, Self-Care Condition: Good Functional capacity at discharge: independent ambulation Overall status at discharge: patient is progressing back to baseline - Discharge Instructions Follow Up With: Minh Lauren DO [Primary Care Provider] - Yanci Monet MD [Partnered Physician] - (5-7 days, [facility] will call office with appt. date and time) Additional Instructions: RISK FACTORS: STOP SMOKING: If you smoke, STOP. Smoking or tobacco use significantly increases your risk of heart disease because nicotine causes the arteries to narrow or constrict. It also causes fats to stick to the artery. Your chances of having a heart attack are greatly increased if you continue to smoke. For more information, call the education line for smoking cessation 0-802-[id number] EAT A LOW FAT/CHOLESTEROL/SODIUM DIET: This diet may help reduce your chances of having a heart attack. LIFTING: Avoid lifting anything more than 10 pounds for 5-7 days Prior to straining, laughing, sneezing and/or coughing, apply manual pressure directly over insertion site. ACTIVITY: You may walk or climb stairs as tolerated You can resume sexual activity as tolerated In general, you are encouraged to engage in a minimum of 30 minutes or more of moderate intensity physical activity, such as brisk walking, daily or at least 3 -4 times weekly BATHING Do not submerge the site into water (bath tub, hot tub, swimming pool) for 1 week. This can be a source for infection into the blood stream. You may shower after 24 hours SITE CARE: After 24 hours, you may remove the dressing and leave the site open to air. Keep the site clean and dry. Clean gently and pat dry. You can expect bruising and tenderness that gradually resolve within a week or two. Return to work as instructed per your physician Resume driving as instructed per physician Keep all scheduled follow up appointments Resume medications as instructed IMPORTANT: If prescribed a Platelet Aggregation Inhibitor such as, Plavix, Brilinta or Effient: Duration of therapy is minimum one year These medications are often used in combination with Aspirin in prevention of future heart attacks Never discontinue unless consult with your Credit Control Manager STROKE (CVA) Risk factors for a stroke are: Age, cigarette smoking, diabetes, excessive alcohol consumption, family history, high blood pressure, overweight, physical inactivity, prior stroke, heart attack, diagnosis of carotid artery stenosis or other artery disease. Warning signs: Sudden numbness or weakness of the face, arm or leg; especially on one side of the body, sudden confusion, trouble speaking or understanding, sudden trouble seeing in one or both eyes, sudden trouble walking, dizziness, loss of balance or coordination, sudden severe headache with no cause. Call 911 or go to the Emergency Room. CONGESTIVE HEART FAILURE: If you have been diagnosed with Congestive Heart Failure (CHF) and your symptoms return, make an appointment with your physician Weigh yourself daily. Notify your physician if you have a weight gain of two or more pounds in one day or five or more pounds in one week. If you experience any difficulty breathing, please call 911 BLEEDING: Although the risk of bleeding is minimal, it can happen. If you have any bleeding from the site, apply firm pressure above the puncture site for 10-15 minutes. If the bleeding does not stop, continue manual pressure and call 911 Contact your physician if: You develop a fever greater than 101 degrees Fahrenheit Your site becomes reddened or has any drainage You have an increase in pain or burning at the site or if a large knot forms at the site. If you experience chest pain, shortness of breath, dizziness, or extreme tiredness, stop the activity and rest. Please notify your physicians office if you experience any of these symptoms and they are not relieved by rest please call 911! - Diet and Activity Activity: other (per post PCI discharge instructions) Diet: low fat, low cholesterol, low salt diet - VTE Reasons for not Prescribing Prophylaxis: Not indicated-Anticoagulated or INR therapeutic
[2017-09-28] MEDS: Lactobacillus 1 EACH CAP.SPRINK PO SCH (10:44)
[2017-09-28 11:45] VITALS: BP 111/90
== END 2017-09-28 14:22 | disposition home or self-care (01) | DRG 247 ==
LOC: EMEROO 10:30 → ICNU 10:56 → 2NENU 09-27 17:16
PROVIDERS: ADMIT Internal Medicine Interventional Cardiology; ATTEND Internal Medicine Interventional Cardiology

== ENCOUNTER 2021-06-29 13:26 | Inpatient (IN) ==
[2021-06-29 15:41] LABS: Basophils # 0.1 K/mcL (0.0-0.2); Basophils % 1.2 %; Eosinophils # 0.3 K/mcL (0.0-0.6); Eosinophils % 4.2 %; Hematocrit 40.9 % (35.3-44.9); Hemoglobin 12.8 g/dL (11.5-15.4); Immature Granulocytes % 0.3 % (0-4); Lymphocytes % 30.5 %; Mean Corpuscular HGB Conc 31.3 g/dL (31.6-35.5); Mean Corpuscular Hemoglobin 27.7 pg (28.0-33.3); Mean Corpuscular Volume 88.5 fL (83.0-100.0); Mean Platelet Volume 10.4 fL (9.4-12.4); Monocytes # 0.7 K/mcL (0.0-1.3); Monocytes % 9.7 %; Neutrophils # 3.6 K/mcL (1.6-8.9); Platelet Count 254 K/mcL (140-400); Red Blood Count 4.62 M/mcL (3.82-4.97); Segmented Neutrophils % 54.1 %; White Blood Count 6.7 K/mcL (4.3-11.1)
[2021-06-29 15:50] LABS: Alanine Aminotransferase 16 Units/L (7-52); Albumin 4.2 g/dL (3.5-5.7); Albumin/Globulin Ratio 1.6 (1.1-2.2); Alkaline Phosphatase 108 Units/L (34-104); Aspartate Amino Transferase 21 Units/L (13-39); BUN/Creatinine Ratio 18 (6-26); Bilirubin,Direct 0.1 mg/dL (0.0-0.2); Bilirubin,Indirect 0.7 mg/dL (0.0-1.0); Bilirubin,Total 0.8 mg/dL (0.3-1.0); Blood Urea Nitrogen 13 mg/dL (8-23); Calcium 10.1 mg/dL (8.6-10.3); Carbon Dioxide 27 mEq/L (23-29); Chloride 106 mEq/L (98-107); Globulin 2.6 g/dL (2.4-3.5); Glucose 92 mg/dL (70-105); Magnesium 1.7 mg/dL (1.6-2.6); Osmolality,Calculated 288 (280-300); Sodium 139 mEq/L (136-145); Total Protein 6.8 g/dL (6.4-8.9); Troponin I < 0.03 ng/mL (< 0.04); eGFR For African Americans > 60 (> 60); eGFR For Non-African Americans > 60 (> 60)
[2021-06-29 16:21] LABS: Influenza A PCR Negative (Negative); Influenza B PCR Negative (Negative); Resp. Syncytial Virus PCR Negative (Negative); SARS-CoV-2 by PCR (In House) Negative (Negative)
[2021-06-29] MEDS ORDERED: *HR* Dextrose 50 % in Water (Syg) 50 ML SYRINGE IVP PRN (16:45)
[2021-06-29] MEDS ORDERED: D5% in Water 1,000 ML IVC PRN (16:45)
[2021-06-29] MEDS ORDERED: Dextrose Gel 15 GM/37.5 ML TUBE PO PRN ×2 (16:45)
[2021-06-29] MEDS: *HR* Heparin 5,000 UNIT/ML VIAL SQ SCH (21:32)
[2021-06-29] MEDS: Insulin LISPRO 300 UNITS/3 ML VIAL SUBQ SCH (22:14)
[2021-06-30 01:11] LABS: Hematocrit 38.3 % (35.3-44.9); Hemoglobin 12.4 g/dL (11.5-15.4); Mean Corpuscular HGB Conc 32.4 g/dL (31.6-35.5); Mean Corpuscular Hemoglobin 28.2 pg (28.0-33.3); Mean Corpuscular Volume 87.2 fL (83.0-100.0); Mean Platelet Volume 10.3 fL (9.4-12.4); Platelet Count 222 K/mcL (140-400); Red Blood Count 4.39 M/mcL (3.82-4.97); White Blood Count 7.3 K/mcL (4.3-11.1)
[2021-06-30 01:22] LABS: BUN/Creatinine Ratio 22 (6-26); Blood Urea Nitrogen 15 mg/dL (8-23); Calcium 9.4 mg/dL (8.6-10.3); Carbon Dioxide 25 mEq/L (23-29); Chloride 106 mEq/L (98-107); Glucose 94 mg/dL (70-105); Osmolality,Calculated 289 (280-300); Potassium 3.8 mEq/L (3.5-5.1); Sodium 139 mEq/L (136-145); eGFR For African Americans > 60 (> 60); eGFR For Non-African Americans > 60 (> 60)
[2021-06-30] MEDS: *HR* Heparin 5,000 UNIT/ML VIAL SQ SCH ×3 (06:10→20:31)
[2021-06-30] MEDS: Insulin LISPRO 300 UNITS/3 ML VIAL SUBQ SCH ×4 (07:30→21:17)
[2021-06-30] MEDS: Aspirin 81 MG TAB.CHEW PO SCH (08:54)
[2021-06-30] MEDS ORDERED: Perflutren Lipid Microsphere 1.3 ML in 0.9 % Sodium Chloride 8.7 ML IVP PRN (10:47)
[2021-06-30] MEDS ORDERED: Melatonin 3 MG TABLET PO PRN (20:34)
[2021-07-01] MEDS: *HR* Heparin 5,000 UNIT/ML VIAL SQ SCH ×3 (04:46→20:43)
[2021-07-01] MEDS: Insulin LISPRO 300 UNITS/3 ML VIAL SUBQ SCH ×4 (07:09→21:03)
[2021-07-01] MEDS: Aspirin 81 MG TAB.CHEW PO SCH (07:34)
[2021-07-01 09:04] LABS: Basophils # 0.1 K/mcL (0.0-0.2); Eosinophils # 0.4 K/mcL (0.0-0.6); Eosinophils % 4.2 %; Hematocrit 41.5 % (35.3-44.9); Hemoglobin 13.3 g/dL (11.5-15.4); Immature Granulocytes % 0.2 % (0-4); Lymphocytes % 21.1 %; Mean Corpuscular Hemoglobin 28.1 pg (28.0-33.3); Mean Corpuscular Volume 87.6 fL (83.0-100.0); Mean Platelet Volume 10.1 fL (9.4-12.4); Monocytes # 0.9 K/mcL (0.0-1.3); Neutrophils # 6.1 K/mcL (1.6-8.9); Platelet Count 249 K/mcL (140-400); Red Blood Count 4.74 M/mcL (3.82-4.97); Red Cell Distribution Width 15.9 % (11.5-14.5); Segmented Neutrophils % 64.5 %; White Blood Count 9.5 K/mcL (4.3-11.1)
[2021-07-01 09:14] LABS: Prothrombin Time 11.3 Seconds (9.4-12.1)
[2021-07-01 09:23] LABS: BUN/Creatinine Ratio 19 (6-26); Blood Urea Nitrogen 12 mg/dL (8-23); Carbon Dioxide 25 mEq/L (23-29); Chloride 106 mEq/L (98-107); Glucose 119 mg/dL (70-105); Osmolality,Calculated 287 (280-300); Sodium 138 mEq/L (136-145); eGFR For African Americans > 60 (> 60); eGFR For Non-African Americans > 60 (> 60)
[2021-07-01] MEDS: ALLEGRA 180 MG TABLET PO SCH (10:06)
[2021-07-01] MEDS ORDERED: 0.9 % Sodium Chloride 2,000 ML ONE (13:00)
[2021-07-01] MEDS ORDERED: Heparin 1,000 UNITS/500 mL 500 ML ONE (13:00)
[2021-07-01] MEDS ORDERED: ISOVUE-370 200 ML INFUS..BTL ONE (13:00)
[2021-07-01] MEDS ORDERED: Nitroglycerin 1,000 MCG/5 ML VIAL IV ONE (13:00)
[2021-07-01] MEDS ORDERED: *HR* Heparin 10,000 UNIT/10 ML VIAL ONE (13:00)
[2021-07-01] MEDS ORDERED: *HR* Midazolam HCl 2 MG/2 ML VIAL ONE ×2 (13:09→14:01)
[2021-07-01] MEDS ORDERED: *HR* FentaNYL (PF) 100 MCG/2 ML VIAL ONE (13:09)
[2021-07-01] MEDS ORDERED: *HR* Bivalirudin 250 MG VIAL IVC ONE (14:03)
[2021-07-01] MEDS ORDERED: *HR* Ticagrelor 90 MG TABLET ONE (14:19)
[2021-07-01] MEDS: *HR* Ticagrelor 90 MG TABLET PO SCH (20:43)
[2021-07-02] MEDS: *HR* Heparin 5,000 UNIT/ML VIAL SQ SCH (06:20)
[2021-07-02 06:57] VITALS: O2SAT 96
[2021-07-02] MEDS: Insulin LISPRO 300 UNITS/3 ML VIAL SUBQ SCH ×2 (07:01→11:16)
[2021-07-02] MEDS: ALLEGRA 180 MG TABLET PO SCH (07:27)
[2021-07-02] MEDS: *HR* Ticagrelor 90 MG TABLET PO SCH (07:28)
[2021-07-02] MEDS: Aspirin 81 MG TAB.CHEW PO SCH (07:28)
[2021-07-02 09:10] LABS: Basophils # 0.1 K/mcL (0.0-0.2); Basophils % 0.9 %; Eosinophils # 0.3 K/mcL (0.0-0.6); Eosinophils % 3.6 %; Hematocrit 40.9 % (35.3-44.9); Hemoglobin 13.1 g/dL (11.5-15.4); Immature Granulocytes % 0.2 % (0-4); Lymphocytes # 1.7 K/mcL (0.6-4.6); Mean Corpuscular Hemoglobin 27.9 pg (28.0-33.3); Mean Corpuscular Volume 87.2 fL (83.0-100.0); Mean Platelet Volume 10.3 fL (9.4-12.4); Monocytes # 0.9 K/mcL (0.0-1.3); Monocytes % 10.4 %; Neutrophils # 5.5 K/mcL (1.6-8.9); Platelet Count 247 K/mcL (140-400); Red Blood Count 4.69 M/mcL (3.82-4.97); Segmented Neutrophils % 64.9 %; White Blood Count 8.5 K/mcL (4.3-11.1)
[2021-07-02 09:29] LABS: Alanine Aminotransferase 13 Units/L (7-52); Albumin 4.2 g/dL (3.5-5.7); Albumin/Globulin Ratio 1.6 (1.1-2.2); Alkaline Phosphatase 105 Units/L (34-104); Aspartate Amino Transferase 18 Units/L (13-39); BUN/Creatinine Ratio 17 (6-26); Bilirubin,Total 0.9 mg/dL (0.3-1.0); Blood Urea Nitrogen 13 mg/dL (8-23); Calcium 9.9 mg/dL (8.6-10.3); Carbon Dioxide 24 mEq/L (23-29); Chloride 104 mEq/L (98-107); Globulin 2.7 g/dL (2.4-3.5); Glucose 194 mg/dL (70-105); Osmolality,Calculated 287 (280-300); Potassium 3.5 mEq/L (3.5-5.1); Sodium 136 mEq/L (136-145); Total Protein 6.9 g/dL (6.4-8.9); eGFR For African Americans > 60 (> 60); eGFR For Non-African Americans > 60 (> 60)
[2021-07-02 10:49] VITALS: BP 114/75; PULSE 63; TEMP 97.5
== END 2021-07-02 13:22 | disposition home or self-care (01) | DRG 247 ==
LOC: 2ANU 13:26 → EMEROOARM 13:26 → SUATTDRO 16:36 → 2ANU 17:51
PROVIDERS: ADMIT Internal Medicine; ATTEND Internal Medicine